=== PATIENT | female | born 1980 | race Caucasian/White ===

== ENCOUNTER 2020-03-10 08:26 | Emergency (ER) | payer BC ==
[2020-03-10] MEDS ORDERED: NORMAL SALINE 1000 ML 1,000 ML IV ONE (11:14)
[2020-03-10] MEDS ORDERED: CLINDAMYCIN 600 MG/D5W RTU 600 MG/50 ML RTUPB IV ONE (11:14)
[2020-03-10] MEDS ORDERED: DEXAMETHASONE SOD PHOS INJ 10 MG/1 ML VIAL IV ONE (11:14)
[2020-03-10 11:15] VITALS: BP 126/80
--- NOTE | 2020-03-10 11:17 | ER Document Report ---
[facility] ENT - General Chief Complaint: Sore Throat Stated Complaint: SORE THROAT,SWELLING Time Seen by Provider: 03/10/20 10:41 Primary Care Provider: [facility] [Provider Group] - Follow up as needed Mode of Arrival: Ambulatory Information source: Patient Notes: Patient presents with sore throat for the past 4 days. Patient states that pain is worse to the left side that radiates into the ear. Patient states she went to an urgent care yesterday and had a negative COVID and negative strep test. Patient denies any cough or fever. - HPI Patient complains to provider of: Throat problem Onset: Other - 4 days Onset/Duration: Worse Quality of pain: Achy Pain Level: 5 Location of pain: Throat Associated symptoms: Ear pain, Sore throat. denies: Fever Similar symptoms previously: No Recently seen / treated by doctor: Yes - Related Data Allergies/Adverse Reactions: No Known Allergies Allergy (Unverified 03/10/20 09:02) Home Medications: Pt. came in today viz personal vehicle, C/O of sore throat. Pt. was seen at [facility] urgent care yesterday. She was tested for strep throat and Covid 19 both were negative. Pt. was not given any medications and sent home. Pt. works at a [employer] on [facility] were a coworker recently tested postive for Covid 19. Pt. had no direct contact with the coworker. 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 denies: Fever EENT: Throat pain Cardiovascular: No symptoms reported Respiratory: No symptoms reported. denies: Cough, Short of breath Gastrointestinal: No symptoms reported. denies: Vomiting Genitourinary: No symptoms reported Female Genitourinary: No symptoms reported Musculoskeletal: No symptoms reported Skin: No symptoms reported Hematologic/Lymphatic: No symptoms reported Neurological/Psychological: No symptoms reported Physical Exam - Vital signs Vitals: Temp 98.5 F 03/10/20 08:28 - General General appearance: Appears well, Alert In distress: None - HEENT Head: Normocephalic, Atraumatic Eyes: Normal Conjunctiva: Normal Nasal: Normal Mouth/Lips: Normal Mucous membranes: Dry Pharynx: Erythema, Tonsillar hypertrophy - Left-sided tonsillar hypertrophy Neck: Normal, Supple. No: Lymphadenopathy Notes: No trismus - Respiratory Respiratory status: No respiratory distress Chest status: Nontender Breath sounds: Normal. No: Rales, Rhonchi, Stridor, Wheezing Chest palpation: Normal - Cardiovascular Rhythm: Regular Heart sounds: S1 appreciated, S2 appreciated Murmur: No - Back Back: Normal - Extremities General upper extremity: Normal inspection, Normal strength General lower extremity: Normal inspection, Normal strength - Neurological Neuro grossly intact: Yes Cognition: Normal Caren Coma Scale Eye Opening: Spontaneous Caren Coma Scale Verbal: Oriented [place] Coma Scale Motor: Obeys Commands Caren Coma Scale Total: 15 - Psychological Associated symptoms: Normal affect, Normal mood - Skin Skin Temperature: Warm Skin Moisture: Dry Skin Color: Normal Course - Re-evaluation Re-evalutation: 03/10/20 Patient clinically appears to be improved at this time. Patient no longer tachycardic. Patient able to tolerate oral fluids. Patient advised of CT findings and positive mono test. Discussed avoidance of contact sports and activities. Discussed worsening symptoms that patient should return immediately for. Patient verbalized understanding and is agreeable with discharge plan of care. - Vital Signs Vital signs: Temp Pulse Resp BP Pulse Ox 98.5 F 102 H 14 126/80 H 99 03/10/20 08:54 03/10/20 08:54 03/10/20 08:54 03/10/20 08:54 03/10/20 08:54 - Laboratory Laboratory results interpreted by me: 03/10/20 11:37 Monotest POSITIVE H Labs- All tests 24 hr 03/10/20 03/10/20 11:37 12:24 Monotest POSITIVE H Group A Strep Rapid NEGATIVE - Diagnostic Test Radiology reviewed: Reports reviewed Discharge - Discharge Clinical Impression: Sore throat Mononucleosis Qualifiers: Infectious mononucleosis etiology: unspecified organism Infectious mononucleosis complication: without complication Qualified Code(s): B27.90 - Infectious mononucleosis, unspecified without complication Condition: Stable Disposition: HOME, SELF-CARE Instructions: Acetaminophen, Intravenous (IV) Fluids ([facility]), Mononucleosis ([facility]) Additional Instructions: Return immediately for any new or worsening symptoms Followup with your primary care provider, call tomorrow to make a followup appointment Increase oral fluids and stay well-hydrated Avoid any potential contact sports Prescriptions: Clindamycin HCl 300 mg PO QID #28 capsule Naproxen [Naprosyn 250 Nmg Tablet] 1 tab PO BID #14 tablet Hydrocodone/Acetaminophen [[place] 5-325 mg Tablet] 1 tab PO Q6 PRN #10 tablet PRN Reason: Forms: Return to Work Referrals: [facility] [Provider Group] - Follow up as needed
--- NOTE | 2020-03-10 13:08 | RADIOLOGY REPORT (SQ) ---
EXAM DESCRIPTION: CT SOFT TISSUE NECK WITH IMAGES COMPLETED DATE/TIME: 03/10/2020 12:45 pm REASON FOR STUDY: left tonsillar swelling COMPARISON: None. TECHNIQUE: Post IV contrasted scanning from skull base through lung apices with review of bone, soft tissue and lung windows. Reconstructed coronal and sagittal MPR images reviewed. All images stored on PACS. All CT scanners at this facility use dose modulation, iterative reconstruction, and/or weight based d osing when appropriate to reduce radiation dose to as low as reasonably achievable (ALARA). [facility]: Dose Right [facility]: CareDose [facility]: Dose Right [facility]: Teradose 4D [facility]: [employer] CONTRAST TYPE AND DOSE: contrast/concentration: Isovue 350.00 mmol/ml; Total Contrast Delivered: 75. 0 ml; Total Saline Delivered: 27.5 ml RENAL FUNCTION: None required. The patient is less than 50 years old. RADIATION DOSE: CT Rad equipment meets quality standard of care and radiation dose reduction techniq ues were employed. CTDIvol: 9.2 mGy. DLP: 296 mGy-cm. . LIMITATIONS: None. FINDINGS: SKULL BASE: Intact. MAJOR SALIVARY GLANDS: No solid or cystic masses. No inflammatory changes. LYMPHADENOPATHY: There is adenopathy on the left. The largest node is seen on image 48 series 3 and measures 13.4 mm in short axis. MUCOSAL MASSES OR ASYMMETRY: There is considerable soft tissue swelling involving the left tonsil. T his also involves the left piriform sinus and valleculum. No peritonsillar abscess appreciated. LARYNX/CORDS: No abnormal findings. VASCULAR STRUCTURES: The major vessels are patent. LUNG APICES: Clear. BONES: Intact. THYROID: Normal size. No masses. PARANASAL SINUSES: The left maxillary sinus is opacified. OTHER: No other significant finding. IMPRESSION: There is soft tissues swelling involving the tonsil on the left and the adjacent soft ti ssues. No peritonsillar abscess is seen. There is left-sided cervical adenopathy. There is left ma xillary sinus disease. TECHNICAL DOCUMENTATION: JOB ID: [id number] Quality ID # [id number]: Final reports with documentation of one or more dose reduction techniques (e.g., Au tomated exposure control, adjustment of the mA and/or kV according to patient size, use of iterative reconstruction technique) 2010 [employer]- All Rights Reserved Reading location - IP/workstation name: [email or web address]
== END 2020-03-10 14:21 | disposition home or self-care (01) ==
LOC: ER 08:26
DX: J02.9 Acute pharyngitis, unspecified (principal); B27.90 Infectious mononucleosis, unspecified without complication
CPT/HCPCS: 99283; 96375; 96365; 36415; 87040; 87070; 87880; 86308; 70491; J7030; J1100